=== PATIENT | female | born 1970 | race Hispanic/Latino ===

== ENCOUNTER 2018-10-28 07:28 | Day surgery (SDC) | payer BC, OTHER ==
[2018-10-28] MEDS ORDERED: Ringers Lactate 1,000 ML IV ONE ×2 (08:06→10:18)
[2018-10-28 08:09] LABS: Absolute Lymphocytes (CBC) 1.6 K/uL (0.7-4.9); Absolute Monocytes 0.2 K/uL (0.1-1.3); Absolute Neutrophil 1.8 K/uL (1.8-8.0); Basophils % 0.5 % (0-1.3); Eosinophils % 2.2 % (0-4.4); Hematocrit 35.9 % (36.0-45.0); Lymphocytes % 43.5 % (15.3-44.8); MPV 8.6 fL (7.6-11.3); Monocytes % 5.5 % (3.3-12.3); RBC Red Blood Cell Count 4.27 M/uL (3.86-4.86)
--- NOTE | 2018-10-28 08:34 | RAD REPORT ---
EXAM DESCRIPTION: RAD - Chest Pa And Lat (2 Views) - 10/28/2018 8:26 am CLINICAL HISTORY: PRE-OP Chest pain. COMPARISON: No comparisons FINDINGS: The lungs are clear. The heart is normal in size. No displaced fractures. IMPRESSION: No acute or concerning finding suspected.
[2018-10-28] MEDS ORDERED: CEFOXITIN/SWI 1gm 1 GM/10 ML SYR ONE (08:35)
[2018-10-28 08:45] LABS: Albumin 4.1 g/dL (3.4-5.0); Bilirubin Direct 0.1 mg/dL (0-0.2); Bilirubin Total 0.5 mg/dL (0.2-1.0); Protein, Total 7.9 g/dL (6.4-8.2)
[2018-10-28] MEDS ORDERED: FENTANYL CITR 100 MCG/2 ML ONE (09:34)
[2018-10-28] MEDS ORDERED: MIDAZOLAM HCL 2 MG/2 ML INJ ONE (09:34)
[2018-10-28] MEDS ORDERED: LIDOCAINE 2% MPF 5 ML VIAL ONE (09:34)
[2018-10-28] MEDS ORDERED: PROPOFOL 200 MG/20 ML VIAL IV ONE (09:34)
[2018-10-28] MEDS ORDERED: ROCURONIUM 50 MG/5 ML VIAL IV ONE (09:34)
[2018-10-28] MEDS ORDERED: SCOPOLAMINE HYDROBROMIDE PATCH TD ONE (09:40)
[2018-10-28] MEDS ORDERED: DEXAMETHASONE 4 MG/ML VIAL ONE (09:55)
[2018-10-28] MEDS ORDERED: ONDANSETRON 4 MG/2 ML VIAL ONE (09:55)
[2018-10-28] MEDS ORDERED: DIPHENHYDRAMINE 50 MG/ML VIAL ONE (09:56)
[2018-10-28] MEDS ORDERED: KETOROLAC 30 MG/ML INJ ONE (09:59)
[2018-10-28] MEDS ORDERED: GLYCOPYRROLATE 0.2 MG/ML SYR ONE (10:20)
[2018-10-28] MEDS ORDERED: NEOSTIGMINE 1 MG/ML -10 ML VIAL ONE (10:22)
--- NOTE | 2018-10-28 10:23 | P.BOP ---
Preoperative diagnosis: acute cholecystitis, symptomatic cholelithiasis, gallbladder polyps Postoperative diagnosis: same Primary procedure: Laparoscopic cholecystectomy Precision Lens Polisher: ASHLYN URRUTIA (DIRECTOR INSTRUMENTATION) Estimated blood loss: <10cc Specimen: gb Findings: as above Anesthesia: General Complications: None Transferred to: Recovery Room Condition: Good
[2018-10-28] MEDS: MEPERIDINE HCL 25 MG/0.5 ML ONE ×2 (11:02→11:07)
[2018-10-28] MEDS ORDERED: CODEINE 30MG/APAP 300MG TAB ONE (12:22)
--- NOTE | 2018-10-29 11:39 | EKG ---
Test Date: 2018-10-28 Test Time: 07:49:37 Electronics Design Engineer: SHEMAR MEASUREMENT RESULTS: Intervals: Rate: 58 [place]: 136 QRSD: 84 QT: 436 QTc: 428 [place]: P: 56 [place]: 136 QRS: 3 T: 34 INTERPRETIVE STATEMENTS: Sinus bradycardia Otherwise normal ECG No previous ECG available for comparison Electronically Signed On 10-29-18 07:39:17 CDT by Lb Jones
--- NOTE | 2018-10-29 11:41 | OP ---
Date of Procedure: 10/28/2018 Surgeon: Maurice Limon MD Lasting Machine Operator Bed: STAS Yee. Preoperative Diagnoses: Acute cholecystitis, symptomatic cholelithiasis, gallbladder polyps. Postoperative Diagnoses: Acute cholecystitis, symptomatic cholelithiasis, gallbladder polyps. Procedure: Laparoscopic cholecystectomy. Estimated Blood Loss: Less than 10 cc. Specimen: Gallbladder. Findings: The patient has gallbladder wall inflammation. Anesthesia: General plus local. Indications: This is a case of a 48-year-old patient with recurrent epigastric right upper quadrant pain radiating to the back associated with nausea and bloating. The patient was found to have a gall bladder with either polyp or stone, the radiologist is not completely sure about it. We explained to her the benefits, alternatives, and risks of surgical versus nonsurgical options, the surgical optio ns being in this case laparoscopic possible open cholecystectomy with benefits, alternatives, and ris ks including, but not limited to infection, bleeding, damage to adjacent structures, anesthesia compl ication, choledocholithiasis, bile leak, pancreatitis, [place], and even . She also understands this may not relieve any symptoms. She might need more than one surgical intervention. She wants to pro ceed with laparoscopic cholecystectomy, possible open. Consent was signed. Description Of Procedure: The patient was brought to the operating room, placed in supine position. Anesthesia was induced without complication. Abdominal area was prepped and draped in usual sterile fashion. Marcaine 0.5% was injected for local anesthetic, followed by sharp incision of the skin in the infraumbilical region. Incision was carried down to fascia, which was opened under direct visio n. Peritoneum was encountered, opened under direct vision. Vicryl #1 placed inside the fascia. Has son trocar was carefully introduced. Pneumoperitoneum was obtained. I placed 3 more trocars, 5 mm e ach one of them, in the right upper quadrant under direct visualization. The grasper placed in the f undus of the gallbladder, another grasper in the infundibulum, retracting the gallbladder in inferola teral fashion, exposing the triangle of Calot, obtaining critical view of safety. The cystic duct an d cystic artery were clearly isolated free circumferentially and a connection between those and the g allbladder was clearly identified. I proceeded to ligate those by using at least 3 clips proximal, 1 clip distal, ligation in the middle. Same was done with the cystic artery. No bile leak. No bleed ing. The gallbladder was removed from liver using Bovie cauterizer and removed from abdominal cavity using an EndoCatch through the umbilical incision. The area was inspected once again. No bile leak . No bleeding. Clips were intact. Gallbladder fossa with no bleeding. At that moment, I proceeded to remove the trocars under direct vision. Deflated the pneumoperitoneum. Closed the fascia with # 1 Vicryl, irrigated the subcutaneous tissue, closed that with chromic, and skin in a subcuticular fas hion with 3-0 chromic, and a Steri-Strip on top. Sponge count and instrument counts were correct. T he patient tolerated the procedure well. The patient was sent to Recovery in stable condition. ZAKI Voice ID: [id number] Report ID: [id number]
--- NOTE | 2018-10-29 11:44 | DS ---
Date of Discharge: 10/28/2018 Diagnoses: Acute cholecystitis, symptomatic cholelithiasis, gallbladder polyps. Procedure: Laparoscopic cholecystectomy. Disposition: Home. Activity: As tolerated. No heavy lifting. Followup: Follow up in my office in 1 week. Call for appointment [phone]. Keep area dry for 48 ho urs, then may shower. Keep Steri-Strips intact. Medications: Include Tylenol No. 3 q.4 hours for p.r.n. pain, Bactrim DS p.o. b.i.d., Zofran 4 every 6 p.r.n. nausea. FREDI/REINALDO Voice ID: [id number] Report ID: [id number]
== END 2018-10-28 13:30 | disposition home or self-care (01) ==
LOC: OR 07:28
PROVIDERS: ATTEND Surgery
PROC: 0FT44ZZ Resection of Gallbladder, Percutaneous Endoscopic Approach (ICD-10-PCS; principal; 2018-10-28 09:45)
DX: K80.12 Calculus of gallbladder with acute and chronic cholecystitis without obstruction (principal); K21.9 Gastro-esophageal reflux disease without esophagitis
CPT/HCPCS: 36415; 71046; 80048; 80076; 82150; 83690; 85025; 88304; 93005; J2175; J2250; J2405; J2704; J2710; J3010

== ENCOUNTER 2020-12-07 10:28 | Inpatient (IN) | payer BC, OTHER ==
[2020-12-07] MEDS ORDERED: METHYLPREDNISOLONE 125 MG INJ ONE (11:04)
[2020-12-07] MEDS ORDERED: ACETAMINOPHEN 500 MG TAB ONE (11:07)
[2020-12-07 11:27] LABS: Absolute Lymphocytes (CBC) 0.8 K/uL (0.7-4.9); Basophils % 0.2 % (0-1.3); Lymphocytes % 30.5 % (15.3-44.8); MPV 8.5 fL (7.6-11.3); RBC Red Blood Cell Count 4.74 M/uL (3.86-4.86)
[2020-12-07 11:29] LABS: Protime INR 1.09
--- OUTSIDE RECORDS SUMMARY | 2020-12-07 11:32 | XMS REPORT | Continuity of Care Document ---
:1970 Author Organization [facility] t Address [address] [place] [address] Care Team Providers Name Role Phone Marcial Brunson MD Primary Care Physician Amrit Smith Attending Clinician Marisol Marc Attending Clinician [address] Attending Clinician Payers Payer Name Policy Type Policy Number Effective Date Expiration Date S ource Problems Condition Condition Condition Status Onset Resolution Last Treating Co mments Source Name Details Category Date Date Treatment Clinician Date Chondromal Chondromal Disease Active 2018-06 [place] [facility] [facility] [place] of 2-13 [facility] left knee left knee 00:00: st 00 Internal Internal Disease Active 2018-06 [place] derangemen 1-15 Me thodi t of left t of left 00:00: st knee knee 00 Left knee Left knee Disease Active 2018-06 [place] [facility] pain pain 1-15 [facility] 00:00: st 00 Allergies, Adverse Reactions, Alerts This patient has no known allergies or adverse reactions. Family History Family Member Diagnosis Comments Start Date Stop Date Source Natural father Diabetes [facility] Maternal uncle Diabetes [facility] Social History Social Habit Start Date Stop Date Quantity Comments Source Tobacco use and 2019-05-14 2019-05-14 Never used [facility]ist exposure 00:00:00 00:00:00 Alcohol intake 2019-05-14 2019-05-14 Current drinker [facility] 00:00:00 00:00:00 of alcohol (finding) Sex [birth year] [facility]ist 00:00:00 00:00:00 Smoking Status Start Date Stop Date Source Never smoker [facility] Medications Ordered Filled Start Stop Current Ordering Indication Dosage Frequency Signature Comments Components Source Medication Medication Date Date Medication? Clinician (SIG) Name Name omeprazole 2018-06 Yes 20mg QD Take 20 mg [place] (PriLOSEC) 1-15 by mouth Metho di 20 MG 10:05: daily. st capsule 26 Procedures This patient has no known procedures. Plan of Care Planned Activity Planned Date Details Comments Source Future Scheduled 2020-12-31 INFLUENZA VACCINE [place] [facility] 00:00:00 [code = INFLUENZA VACCINE] Future Scheduled 2020-02-06 BREAST CANCER [facility] Test 00:00:00 SCREENING [code = BREAST CANCER SCREENING] Future Scheduled 2020-02-06 COLONOSCOPY SCREENING [place] [facility] 00:00:00 [code = COLONOSCOPY SCREENING] Future Scheduled 2020-02-06 SHINGLES VACCINES [place] [facility] 00:00:00 (#1) [code = SHINGLES VACCINES (#1)] Future Scheduled 1991 Screening for [facility] Test 00:00:00 malignant neoplasm of cervix (procedure) [code = 061484320] Future Scheduled 1988-02-06 Hepatitis C screening [place] [facility] 00:00:00 (procedure) [code = 520193119] Future Scheduled 1982 COVID-19 VACCINE (1) [facility] 00:00:00 [code = COVID-19 VACCINE (1)] Encounters Start End Encounter Admission Attending Care Care Encounter Source Date/Time Date/Time Type Type Clinicians Facility Department ID 2020-12-01 2020-12-01 Outpatient [facility] [id number] [facility] 2020-09-25 2020-09-25 [facility] [id number] 2020-09-15 2020-09-15 [facility] [id number] [facility] 2020-08-31 2020-08-31 [facility] [id number] [facility] 2020-08-17 2020-08-17 [facility] [id number] [facility] 2020-07-03 2020-07-03 [id number] 2019-08-11 2019-08-12 Emergency [facility] [id number] 20:17:25 00:30:00 Farhat Rosenbaum [id number] [place] [id number] [place] [id number] 2019-08-11 2019-08-11 Urgent [facility] [id number] 18:38:09 18:53:09 Care [facility] [id number] [facility] [id number] Specialti [id number] es 370 Ilsa 2019-01-29 2019-01-29 [facility] [id number] 17:56:36 18:56:48 Care [facility] [id number] Surgical [id number] Specialti [phone] es 370 [place] Results This patient has no known results.
--- NOTE | 2020-12-07 11:56 | RAD REPORT ---
EXAM DESCRIPTION: RAD - Chest Single View - 12/07/2020 11:46 am CLINICAL HISTORY: Cough;Dyspnea COMPARISON: Two view chest September 2018 TECHNIQUE: AP portable chest image was obtained 12/07/2020 11:46 am . FINDINGS: Lung volumes are very low accentuating heart, vasculature and lung markings. Interstitial and alveolar bibasilar opacification is suspicious for pneumonia but would need follow-up with more o ptimal inspiratory effort. Large body habitus artifact and shallow inspiration artifact can create a similar pattern. No failure or volume overload suspected. Heart and vasculature are normal. No measurable pleural effu aleah and no pneumothorax. No acute bony abnormality seen. No acute aortic findings suspected. IMPRESSION: Significantly limited portable imaging with lung volumes in bilateral lung parenchymal o pacification. Lung base findings may simply be atelectasis. Bilateral lung base pneumonia cannot be excluded.
[2020-12-07 12:09] LABS: ALT/SGPT 96 U/L (12-78); AST/SGOT 130 U/L (15-37); Albumin 3.9 g/dL (3.4-5.0); Alkaline Phosphatase 101 U/L (45-117); BUN Blood Urea Nitrogen 6 mg/dL (7-18); Bicarbonate 28 mmol/L (21-32); Bilirubin Direct 0.2 mg/dL (0-0.2); Bilirubin Total 0.6 mg/dL (0.2-1.0); Ferritin 394.2 ng/mL (8-388); Glucose Level 110 mg/dL (74-106); Potassium 3.3 mmol/L (3.5-5.1); Protein, Total 8.8 g/dL (6.4-8.2); Sodium Level 140 mmol/L (136-145); Troponin (Emerg Dept Use Only) < 0.02 ng/mL (0.0-0.045)
--- NOTE | 2020-12-07 12:25 | ER ---
Nurse's Notes [facility] Name: Madina Danielle Age: 50 yrs Sex: Female : 1970 Arrival Date: 12/07/2020 Time: 10:31 Bed 18 Private MD: Diagnosis: Pneumonia due to SARS-associated coronavirus;Sepsis, unspecified organism;Hypoxemia Presentation: 12/07 10:38 Chief complaint: Patient states: spouse tested COVID+ 11/29/20. c/o cough, fatigue, back sv pain, mid chest pain, n/v/, SOB and fever Tmax 104 since 11/30/20. Coronavirus screen: Client denies travel out of the [place] in the last 14 days. Client presents with at least one sign or symptom that may indicate coronavirus-19. Standard/surgical mask placed on the client. Provider contacted for isolation considerations. Ebola Screen: No symptoms or risks identified at this time. Initial Sepsis Screen: Does the patient meet any 2 criteria? RR > 20 per min. Temp <36.0*C (96.8*F)) or > 38.3*C (100.9*F). HR > 90 bpm. Yes Does the patient have a suspected source of infection? Yes: Other: COVID. Risk Assessment: Do you want to hurt yourself or someone else? Patient reports no desire to harm self or others. Onset of symptoms was November 30, 2020. 10:38 Method Of Arrival: Ambulatory sv 10:38 Acuity: STEPHANIE 2 sv Triage Assessment: 10:42 General: Appears in no apparent distress. uncomfortable, Behavior is cooperative. Pain: sv Complains of pain in back and chest Pain currently is 6 out of 10 on a pain scale. Neuro: Level of Consciousness is awake, alert, obeys commands, Oriented to person, place, time, situation, Gait is steady. Respiratory: Respiratory effort is even, Respiratory pattern is symmetrical, tachypnea. Historical: - Allergies: 10:42 No Known Allergies; sv - PMHx: 10:42 None; sv - PSHx: 10:42 Cholecystectomy; Hysterectomy; sv - Immunization history:: Client reports receiving the 1st dose of the Covid vaccine, November 29, 2020. - Social history:: Smoking status: Patient denies any tobacco usage or history of. - Family history:: not pertinent. - Hospitalizations: : No recent hospitalization is reported. Screenin:40 Abuse screen: Denies threats or abuse. Nutritional screening: No deficits noted. jd3 Tuberculosis screening: No symptoms or risk factors identified. Fall Risk Ambulatory Aid- None/Bed Rest/Nurse Assist (0 pts). Gait- Normal/Bed Rest/Wheelchair (0 pts) Mental Status- Oriented to own ability (0 pts). Total Lopez Fall Scale indicates No Risk (0-24 pts). Assessment: 10:38 General: Appears in no apparent distress. uncomfortable, Behavior is calm, cooperative, jd3 appropriate for age. Pain: Complains of pain in back and chest Quality of pain is described as aching, pressure. Neuro: Level of Consciousness is awake, alert, obeys commands, Oriented to person, place, time, situation. Cardiovascular: Capillary refill < 3 seconds Patient's skin is warm and dry. Rhythm is sinus tachycardia. Respiratory: Reports shortness of breath at rest cough that is non-productive, dry, persistent Airway is patent Respiratory effort is even, labored, Respiratory pattern is symmetrical, tachypnea Breath sounds are diminished bilaterally. GI: No signs and/or symptoms were reported involving the gastrointestinal system. : No signs and/or symptoms were reported regarding the genitourinary system. EENT: No signs and/or symptoms were reported regarding the EENT system. Derm: Skin is intact, Skin is dry, Skin is normal, Skin temperature is warm. Musculoskeletal: Circulation, motion, and sensation intact. Range of motion: intact in all extremities. 10:41 Reassessment: Code Sepsis called. sv 11:45 Reassessment: Patient appears in no apparent distress at this time. No changes from jd3 previously documented assessment. Patient and/or family updated on plan of care and expected duration. Pain level reassessed. Patient is alert, oriented x 3, equal unlabored respirations, skin warm/dry/pink. 12:31 Reassessment: Patient appears in no apparent distress at this time. Patient and/or jd3 family updated on plan of care and expected duration. Pain level reassessed. Patient is alert, oriented x 3, equal unlabored respirations, skin warm/dry/pink. Patient states feeling better. 13:26 Reassessment: Patient appears in no apparent distress at this time. No changes from jd3 previously documented assessment. Patient and/or family updated on plan of care and expected duration. Pain level reassessed. Patient is alert, oriented x 3, equal unlabored respirations, skin warm/dry/pink. 14:32 Reassessment: Patient appears in no apparent distress at this time. No changes from jd3 previously documented assessment. Patient and/or family updated on plan of care and expected duration. Pain level reassessed. Patient is alert, oriented x 3, equal unlabored respirations, skin warm/dry/pink. 15:45 Reassessment: Patient appears in no apparent distress at this time. Patient and/or jd3 family updated on plan of care and expected duration. Pain level reassessed. Patient is alert, oriented x 3, equal unlabored respirations, skin warm/dry/pink. Patient states feeling better. Vital Signs: 10:38 Pulse 114; Resp 36; Temp 102.1(O); Pulse Ox 92% on R/A; Weight 83.91 kg; Height 5 ft. 2 sv in. (157.48 cm); Pain 6/10; 11:57 Pulse 105; Resp 27 S; Pulse Ox 94% on R/A; jd3 12:30 Pulse 100; Resp 24 S; Temp 101.8(O); Pulse Ox 94% on R/A; jd3 13:26 Pulse 97; Resp 25 S; Pulse Ox 94% on R/A; jd3 14:32 Pulse 104; Resp 26 S; Pulse Ox 95% on R/A; jd3 16:35 BP 111 / 62; Pulse 96; Resp 24 S; Temp 97.9(TE); Pulse Ox 94% on R/A; jd3 10:38 Body Mass Index 33.84 (83.91 kg, 157.48 cm) sv ED Course: 10:31 Patient arrived in ED. wm 10:33 [place], LUCY is Primary Nurse. jd3 10:37 Frandy Jasso MD is Attending Physician. rn 10:39 Patient has correct armband on for positive identification. Bed in low position. Call jd3 light in reach. Side rails up X 1. secured entrance monitor on. Pulse ox on. NIBP on. 10:41 Triage completed. sv 11:11 Arm band placed on. jd3 11:15 Inserted saline lock: 20 gauge in left antecubital area, using aseptic technique. Blood jd3 collected. 11:46 CXR XRAY In Process Unspecified. EDMS 12:23 Miguel Jacobo DO is Hospitalizing Provider. rn 16:36 No provider procedures requiring assistance completed. Patient admitted, IV remains in jd3 place. Administered Medications: 10:50 Drug: Tylenol 1000 mg Route: PO; jd3 11:30 Drug: SOLU-Medrol (methylPrednisoLONE) 125 mg Route: IVP; Site: right antecubital; jd3 Outcome: 12:24 Decision to Hospitalize by Provider. rn 17:55 Patient left the ED. jd3 Signatures: Dispatcher [employer] EDMS Clari Sandoval RN RN sv Nieto, Roman, MD MD rn Davies, Jonathon, RN RN jd3 Marsh, Wendy wm Corrections: (The following items were deleted from the chart) 10:42 10:42 PMHx: None; sv sv 10:42 10:42 PMHx: hysterectomy; sv sv 10:42 10:42 PSHx: hystectomy; sv sv 16:36 15:00 Inserted saline lock: 20 gauge in left antecubital area, using aseptic technique. jd3 Blood collected. jd3 16:37 16:35 BP 111 / 62; Pulse 96bpm; Resp 24bpm; Spontaneous; Pulse Ox 94% RA; jd3 jd3
--- NOTE | 2020-12-07 12:25 | EDPHYS ---
Physician Documentation [facility] Name: Madina Danielle Age: 50 yrs Sex: Female : 1970 Arrival Date: 12/07/2020 Time: 10:31 Bed 18 Private MD: ED Physician Frandy Jasso HPI: 12/07 12:02 This 50 yrs old Female presents to ER via Ambulatory with complaints of rn Congestion. 12:02 The patient has shortness of breath at rest, with light activity. Onset: The rn symptoms/episode began/occurred 6 day(s) ago. Duration: The symptoms are continuous. The patient's shortness of breath is aggravated by exertion, light activity, supine position, talking, walking, is alleviated by nothing. Associated signs and symptoms: Pertinent positives: non-productive cough, fever, Pertinent negatives: hemoptysis, loss of consciousness. Severity of symptoms: At their worst the symptoms were moderate in the emergency department the symptoms are unchanged. The patient has not experienced similar symptoms in the past. The patient has been recently seen by a physician:. Reports COVID +, she has not been tested, + sob that worsens with exertion, no chronic medical problems. . Historical: - Allergies: 10:42 No Known Allergies; sv - PMHx: 10:42 None; sv - PSHx: 10:42 Cholecystectomy; Hysterectomy; sv - Immunization history:: Client reports receiving the 1st dose of the Covid vaccine, November 29, 2020. - Social history:: Smoking status: Patient denies any tobacco usage or history of. - Family history:: not pertinent. - Hospitalizations: : No recent hospitalization is reported. 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 12:02 All other systems are negative. rn Exam: 11:17 ECG was reviewed by the Attending Physician. rn 12:02 Constitutional: This is a well developed, well nourished patient who is awake, alert, rn + moderate tachypnea Head/Face: Normocephalic, atraumatic. Eyes: Periorbital areas with no swelling, redness, or edema. ENT: no stridor Cardiovascular: Tachycardic, regular. No pulse deficits. Respiratory: + moderate tachypnea, no retractions, diminished bilateral bases Abdomen/GI: soft, non-tender Skin: Warm, dry MS/ Extremity: Pulses equal, no cyanosis. Neuro: Awake and alert, GCS 15 Vital Signs: 10:38 Pulse 114; Resp 36; Temp 102.1(O); Pulse Ox 92% on R/A; Weight 83.91 kg; Height 5 ft. 2 sv in. (157.48 cm); Pain 6/10; 11:57 Pulse 105; Resp 27 S; Pulse Ox 94% on R/A; jd3 12:30 Pulse 100; Resp 24 S; Temp 101.8(O); Pulse Ox 94% on R/A; jd3 13:26 Pulse 97; Resp 25 S; Pulse Ox 94% on R/A; jd3 14:32 Pulse 104; Resp 26 S; Pulse Ox 95% on R/A; jd3 16:35 BP 111 / 62; Pulse 96; Resp 24 S; Temp 97.9(TE); Pulse Ox 94% on R/A; jd3 10:38 Body Mass Index 33.84 (83.91 kg, 157.48 cm) sv MDM: 10:37 Patient medically screened. rn 12:22 Differential diagnosis: Bronchitis Myocardial Infarction pneumonia, Pneumothorax rn pulmonary edema, Pulmonary Embolism Sepsis. Data reviewed: vital signs, nurses notes, lab test result(s), EKG, radiologic studies, plain films, and as a result, I will admit patient. Counseling: I had a detailed discussion with the patient and/or guardian regarding: the historical points, exam findings, and any diagnostic results supporting the discharge/admit diagnosis, lab results, radiology results, the need for further work-up and treatment in the hospital. Response to treatment: the patient's symptoms have mildly improved after treatment, and as a result, I will admit patient. Admission orders: after a detailed discussion of the patient's condition and case, the admit orders are written by me. ED course: Pt with COVID pneumonia, early sepsis without septic shock, admitted to Dr. Jacobo. . 12/07 10:40 Order name: BMP; Complete Time: 12: rn 12/07 10:40 Order name: Blood Culture Adult (2) rn 12/07 10:40 Order name: C-Reactive Protein; Complete Time: 12: rn 12/07 10:40 Order name: CBC with Diff; Complete Time: :58 rn 12/07 10:40 Order name: D-Dimer; Complete Time: :58 rn 12/07 10:40 Order name: Ferritin; Complete Time: 12: rn 12/07 10:40 Order name: Flu; Complete Time: 12:25 rn 12/07 10:40 Order name: LFT's; Complete Time: 12: rn 12/07 10:40 Order name: Lactate; Complete Time: :58 rn 12/07 10:40 Order name: PT-INR; Complete Time: :12/07 10:40 Order name: Procalcitonin rn 12/07 10:40 Order name: Ptt, Activated; Complete Time: :58 12/07 10:40 Order name: Troponin (emerg Dept Use Only); Complete Time: 12:12/07 10:40 Order name: CXR XRAY; Complete Time: :58 12/07 10:40 Order name: EKG; Complete Time: 10:41 12/07 10:40 Order name: Cardiac monitoring; Complete Time: 10:50 12/07 10:40 Order name: Droplet/Contact Precautions; Complete Time: :12/07 10:40 Order name: EKG - Nurse/Tech; Complete Time: 10:50 12/07 10:40 Order name: IV Start; Complete Time: 11:24 12/07 10:40 Order name: Labs collected and sent; Complete Time: 11:12/07 10:40 Order name: O2 Per Protocol; Complete Time: 10:50 12/07 10:40 Order name: O2 Sat Monitoring; Complete Time: 10:12/07 13:10 Order name: SARS-COV-2 RT PCR EDMS EC:17 Rate is 112 beats/min. Rhythm is regular. Left axis deviation noted. QRS is positive in rn lead I and negative in lead aVF. GA interval is normal. QRS interval is normal. QT interval is normal. No Q waves. T waves are Normal. No ST changes noted. Clinical impression: Sinus tachycardia. Interpreted by me. Reviewed by me. Administered Medications: 10:50 Drug: Tylenol 1000 mg Route: PO; jd3 11:30 Drug: SOLU-Medrol (methylPrednisoLONE) 125 mg Route: IVP; Site: right antecubital; jd3 Disposition Summary: 12/07/20 12:24 Hospitalization Ordered Hospitalization Status: Inpatient Admission rn Provider: Miguel Jacobo rn Condition: Stable rn Problem: new rn Symptoms: have improved rn Bed/Room Type: Standard rn Location: Telemetry/MedSurg (Inpatient)(12/07/20 16:31) ss Room Assignment: [facility](12/07/20 16:31) Diagnosis - Pneumonia due to SARS-associated coronavirus rn - Sepsis, unspecified organism rn - Hypoxemia rn Forms: - Medication Reconciliation Form rn - SBAR form rn Signatures: Dispatcher [employer] EDMS Clari Sandoval RN RN Frandy Goff MD MD rn Smirch, Shelby, RN RN ss Davies, Jonathon, RN RN jd3 Corrections: (The following items were deleted from the chart) 10:42 10:42 PMHx: None; sv sv 10:42 10:42 PMHx: hysterectomy; sv sv 10:42 10:42 PSHx: hystectomy; sv sv 12:02 10:41 CORONAVIRUS+MR.LAB.BRZ ordered. EDLA EDMS 15:37 12:24 Telemetry/MedSurg (Inpatient) rn ss 15:37 12:24 rn ss 16:31 15:37 BR ER HOLD ss ss 16:31 15:37 ERHOLD- ss ss
--- NOTE | 2020-12-07 13:14 | P.HP ---
Certification for Inpatient Patient admitted to: Inpatient With expected LOS: >2 Midnights Patient will require the following post-hospital care: Other (Home oxygen at discharge) Practitioner: I am a practitioner with admitting privileges, knowledge of patient current condition, hospital course, and medical plan of care. Services: Services provided to patient in accordance with Admission requirements found in Title 42 Section 412.3 of the Code of Federal Regulations Patient History Date of Service: 12/07/20 Primary Care Provider: Dr. Juares Reason for admission: Shortness of breath History of Present Illness: 50-year-old female with history of fatty liver. Patient presented with increasing shortness of breath over the past week. Symptoms have been worsening. She also reports some fever, chills, cough and arthralgias. Some fatigue noted. with similar complaints and tested positive. Patient is partially vaccinated. She received her first dose of Pfizer several weeks ago. She came to the ER for further evaluation. In the ER patient was evaluated. Patient was febrile and tachypneic. Room air saturations around 92%. On labs white count 2.7, hemoglobin 13.7. Sodium 140, potassium three-point.. BUN of 6, creatinine 0.8. GFR 75. Glucose 110. CRP 87, ferritin 394. AST 130, ALT 96. D-dimer negative. Lactic acid negative. Troponin negative. Chest x-ray shows Covid pattern. Patient admitted for treatment. Patient given IV Solu-Medrol in the emergency room. Allergies No Known Allergies Allergy (Verified 10/28/18 08:25) Home medications list reviewed: Yes Home Medications: Codeine/APAP [Tylenol W/Codeine #3 tab] 1 tab PO Q4HP PRN #30 tab 10/28/18 Omeprazole [Prilosec] 40 mg PO DAILY 10/28/18 Sulfamethoxazole/Trimethoprim [Bactrim Ds Tablet] 1 each PO BID #10 tablet 10/28/18 - Past Medical/Surgical History Diabetic: No -: Fatty liver -: Cholecystectomy -: Hysterectomy Psychosocial/ Personal History: Patient is - Family History Family History: Reviewed- Non-Contributory - Social History Smoking Status: Never smoker Alcohol use: No CD- Drugs: No Caffeine use: No Place of Residence: Home Review of Systems General: Fever, Chills, Weakness, Malaise, As per HPI Eyes: Unremarkable ENT: Nose Congestion, As per HPI Respiratory: Cough, Shortness of Breath, SOB with Excertion, As per HPI Cardiovascular: Unremarkable Gastrointestinal: Unremarkable Genitourinary: Unremarkable Musculoskeletal: Unremarkable Integumentary: Unremarkable Neurological: Unremarkable Lymphatics: Unremarkable Physical Examination - Studies Laboratory Data (last 24 hrs) 12/07/20 10:57: PT 12.5, INR 1.09, APTT 31.5 12/07/20 10:57: WBC 2.70 L, Hgb 13.7, Hct 41.0, Plt Count 145 L 12/07/20 10:57: Sodium 140, Potassium 3.3 L, BUN 6 L, Creatinine 0.81, Glucose 110 H, Total Bilirubin 0.6, AST 130 H, ALT 96 H, Alkaline Phosphatase 101 Microbiology Data (last 24 hrs): 12/07/20 11:08 Nasopharnyx Influenza Type A Antigen Screen - Final 12/07/20 11:08 Nasopharnyx Influenza Type B Antigen Screen - Final Assessment and Plan - Plan Chest x-ray: FINDINGS: Lung volumes are very low accentuating heart, vasculature and lung markings. Interstitial and alveolar bibasilar opacification is suspicious for pneumonia but would need follow-up with more optimal inspiratory effort. Large body habitus artifact and shallow inspiration artifact can create a similar pattern. No failure or volume overload suspected. Heart and vasculature are normal. No measurable pleural effusion and no pneumothorax. No acute bony abnormality seen. No acute aortic findings suspected. IMPRESSION: Significantly limited portable imaging with lung volumes in bilateral lung parenchymal opacification. Lung base findings may simply be atelectasis. Bilateral lung base pneumonia cannot be excluded. Physical Exam: GENERAL: Patient with cough, congestion. VITAL SIGNS: Reviewed HEENT: Extraocular movements intact. Dry mucous membranes. NECK: Supple. No carotid bruits. No lymphadenopathy or thyromegaly. LUNGS: Congestion bilateral HEART: Regular rate and rhythm, no appreciable gallops, rubs, murmurs or extra heart sounds ABDOMEN: Soft, nontender, and nondistended. Positive bowel sounds. No hepatosplenomegaly was noted. EXTREMITIES: Without any cyanosis, clubbing, rash, lesions or peripheral edema. NEUROLOGIC: The patient is oriented to person, place and time. Strength and sensation are grossly intact. Face is symmetric. SKIN: Normal color, turgor and temperature. No ulcerations or rashes noted. Impression: Dyspnea secondary to bilateral Covid pneumonia with hypoxia, partially vaccinated Fatty liver with noted elevated liver function Plan: Dyspnea secondary to bilateral Covid pneumonia with hypoxia, partially vaccinated: Patient admitted for further evaluation and treatment. We will continue on oxygen to maintain sats above 90%. Will continue with IV Solu- Medrol and vitamin supplementation. Patient not a candidate for remdesivir, Actemra, or baricitinib due to elevated liver function. Will continue to monitor and trend CRP and ferritin. DVT prophylaxisLovenox in place. Will provide medication for cough, congestion, fever, or pain. Will provide supplementation if required. We will continue to monitor closely. Anticipate home oxygen at discharge. Anticipate improvement over the next 72 hours. Fatty liver with noted elevated liver function: Patient with history of fatty liver. Will monitor and trend liver function test. Patient was to have outpatient liver ultrasound recently. Code Status: Full Code DVT prophylaxis: Lovenox Advanced Care Planning-30 minutes: Home at discharge. Anticipate likely oxygen at discharge. Discharge Plan: Home Plan to discharge in: 72 Hours - Advance Directives Does patient have a Living Will: No Does patient have a Durable POA for Healthcare: No - Code Status/Comfort Care Code Status Assessed: Yes (Full code) Time Spent Managing Pts Care (In Minutes): 55
[2020-12-07] MEDS ORDERED: ONDANSETRON 4 MG/2 ML VIAL IV PRN (16:40)
[2020-12-07] MEDS: ENSURE HIGH PROTEIN 237 ML CAN PO SCH ×2 (16:40→21:00)
[2020-12-07] MEDS ORDERED: IPRATROPIUM BROM 0.5MG/2.5ML NEB PRN (16:40)
[2020-12-07] MEDS ORDERED: ALBUTEROL 2.5 MG/3 ML NEB SOL NEB PRN (16:40)
[2020-12-07] MEDS ORDERED: ACETAMINOPHEN 500 MG TAB PO PRN (16:40)
[2020-12-07] MEDS ORDERED: ASCORBIC ACID 500 MG TABLET ONE (17:20)
[2020-12-07] MEDS ORDERED: ENOXAPARIN 40 MG/0.4 ML SQ ONE (17:20)
[2020-12-07] MEDS ORDERED: METHYLPREDNISOLONE 40 MG INJ ONE (17:21)
[2020-12-07] MEDS ORDERED: FAMOTIDINE 20 MG TAB ONE (17:21)
[2020-12-07] MEDS ORDERED: BENZONATATE 100 MG CAP PO ONE (17:22)
[2020-12-07] MEDS: FAMOTIDINE 20 MG TAB PO SCH (17:40)
[2020-12-07] MEDS: ASCORBIC ACID 500 MG TABLET PO SCH ×2 (17:40→21:27)
[2020-12-07] MEDS: ENOXAPARIN 40 MG/0.4 ML SQ SCH (17:40)
[2020-12-07] MEDS: METHYLPREDNISOLONE 40 MG INJ IV SCH (17:40)
[2020-12-07] MEDS: BENZONATATE 100 MG CAP PO PRN (17:40)
[2020-12-07 18:30] VITALS: BMI 33.8
[2020-12-07] MEDS ORDERED: POTASSIUM CL SA 10 MEQ TAB PO ONE (21:00)
[2020-12-07] MEDS: THIAMINE HCL 100 MG TABLET PO SCH (21:28)
[2020-12-07] MEDS: MELATONIN 5 MG TABLET PO PRN (21:34)
[2020-12-07] MEDS ORDERED: MELATONIN 5 MG TABLET PO ONE (21:53)
[2020-12-08] MEDS: METHYLPREDNISOLONE 40 MG INJ IV SCH ×2 (00:25→07:48)
[2020-12-08] MEDS: BENZONATATE 100 MG CAP PO PRN ×3 (01:42→17:25)
[2020-12-08 03:40] LABS: Absolute Lymphocytes (CBC) 0.5 K/uL (0.7-4.9); Basophils % 0.6 % (0-1.3); Hematocrit 37.6 % (36.0-45.0); Lymphocytes % 20.6 % (15.3-44.8); MPV 8.3 fL (7.6-11.3); RBC Red Blood Cell Count 4.39 M/uL (3.86-4.86)
[2020-12-08 04:01] LABS: ALT/SGPT 81 U/L (12-78); AST/SGOT 96 U/L (15-37); Albumin 3.5 g/dL (3.4-5.0); Alkaline Phosphatase 89 U/L (45-117); BUN Blood Urea Nitrogen 10 mg/dL (7-18); Bicarbonate 26 mmol/L (21-32); Bilirubin Total 0.4 mg/dL (0.2-1.0); Glucose Level 148 mg/dL (74-106); Magnesium 2.4 mg/dL (1.8-2.4); Potassium 4.1 mmol/L (3.5-5.1); Protein, Total 8.5 g/dL (6.4-8.2); Sodium Level 142 mmol/L (136-145)
--- NOTE | 2020-12-08 06:10 | P.PN ---
Subjective Date of Service: 12/08/20 Primary Care Provider: Dr. Juares Chief Complaint: Shortness of breath Subjective: Improving (Currently on 3 L/m. Still with increased cough. Some fatigue. Better since yesterday) Physical Examination - Vital Signs Temperature: 97.8 F Blood Pressure: 104/72 Pulse: 97 Respirations: 20 Pulse Ox (%): 91 - Studies Laboratory Data (last 24 hrs) 12/07/20 10:57: PT 12.5, INR 1.09, APTT 31.5 12/07/20 10:57: WBC 2.70 L, Hgb 13.7, Hct 41.0, Plt Count 145 L 12/07/20 10:57: Sodium 140, Potassium 3.3 L, BUN 6 L, Creatinine 0.81, Glucose 110 H, Total Bilirubin 0.6, AST 130 H, ALT 96 H, Alkaline Phosphatase 101 Microbiology Data (last 24 hrs): 12/07/20 11:08 Nasopharnyx Influenza Type A Antigen Screen - Final 12/07/20 11:08 Nasopharnyx Influenza Type B Antigen Screen - Final Assessment & Plan Discharge Plan: Home Plan to discharge in: 24 Hours Physician Review Additional Text: Chest x-ray: FINDINGS: Lung volumes are very low accentuating heart, vasculature and lung markings. Interstitial and alveolar bibasilar opacification is suspicious for pneumonia but would need follow-up with more optimal inspiratory effort. Large body habitus artifact and shallow inspiration artifact can create a similar pattern. No failure or volume overload suspected. Heart and vasculature are normal. No measurable pleural effusion and no pneumothorax. No acute bony abnormality seen. No acute aortic findings suspected. IMPRESSION: Significantly limited portable imaging with lung volumes in bilateral lung parenchymal opacification. Lung base findings may simply be atelectasis. Bilateral lung base pneumonia cannot be excluded. Physical Exam: GENERAL: Patient with cough, congestion. VITAL SIGNS: Reviewed HEENT: Extraocular movements intact. Dry mucous membranes. NECK: Supple. No carotid bruits. No lymphadenopathy or thyromegaly. LUNGS: Congestion bilateral but air movement improved. On 3 l/m. HEART: Regular rate and rhythm, no appreciable gallops, rubs, murmurs or extra heart sounds ABDOMEN: Soft, nontender, and nondistended. Positive bowel sounds. No hepatosplenomegaly was noted. EXTREMITIES: Without any cyanosis, clubbing, rash, lesions or peripheral edema. NEUROLOGIC: The patient is oriented to person, place and time. Strength and sensation are grossly intact. Face is symmetric. SKIN: Normal color, turgor and temperature. No ulcerations or rashes noted. Impression: Dyspnea secondary to bilateral Covid pneumonia with hypoxia, partially vaccinated Fatty liver with noted elevated liver function Plan: Dyspnea secondary to bilateral Covid pneumonia with hypoxia, partially vaccinated: Slight improvement. Still with cough. Currently on 3 l/m on NC. Continue on oxygen to maintain sats above 90%. Will continue with IV Solu- Medrol and vitamin supplementation. Patient not a candidate for remdesivir, Actemra, or baricitinib due to elevated liver function and fatty liver. Slight improvement on CRP/Ferritin. Will continue to monitor and trend CRP and ferritin. DVT prophylaxisLovenox in place. Will provide medication for cough, congestion, fever, or pain. Will provide supplementation if required. We will continue to monitor closely. Anticipate home oxygen at discharge. Anticipate improvement over the next 24-48 hours. Fatty liver with noted elevated liver function: Patient with history of fatty liver. Will monitor and trend liver function test. Patient was to have outpatient liver ultrasound recently. LFT improved. Code Status: Full Code DVT prophylaxis: Lovenox Advanced Care Planning-30 minutes: Home at discharge. Anticipate likely oxygen at discharge. Time Spent Managing Pts Care (In Minutes): 55
[2020-12-08 06:39] LABS: Ferritin 370.4 ng/mL (8-388)
--- NOTE | 2020-12-08 07:46 | EKG ---
Test Date: 2020-12-07 Test Time: 10:59:00 Trust Administrator: KRISH MEASUREMENT RESULTS: Intervals: Rate: 112 MI: 122 QRSD: 80 QT: 344 QTc: 469 [place]: P: 52 MI: 122 QRS: -36 T: 64 INTERPRETIVE STATEMENTS: Sinus tachycardia Left axis deviation Abnormal ECG Compared to ECG 10/28/2018 07:49:37 Left-axis deviation now present Sinus bradycardia no longer present Electronically Signed On 12-08-20 07:42:53 CDT by Ascencion Foy
[2020-12-08] MEDS: ENOXAPARIN 40 MG/0.4 ML SQ SCH (07:47)
[2020-12-08] MEDS: ENSURE HIGH PROTEIN 237 ML CAN PO SCH ×3 (07:47→20:29)
[2020-12-08] MEDS: VITAMIN D 1000 UNIT TAB PO SCH (07:47)
[2020-12-08] MEDS: FAMOTIDINE 20 MG TAB PO SCH ×2 (07:48→20:29)
[2020-12-08] MEDS: ASCORBIC ACID 500 MG TABLET PO SCH ×3 (07:48→20:29)
[2020-12-08] MEDS: ZINC SULFATE 220 MG CAP PO SCH (07:48)
[2020-12-08] MEDS: THIAMINE HCL 100 MG TABLET PO SCH ×2 (07:49→20:29)
[2020-12-08] MEDS: METHYLPREDNISOLONE 125 MG INJ IV SCH ×2 (09:00→17:25)
[2020-12-08] MEDS: MELATONIN 5 MG TABLET PO PRN (21:46)
[2020-12-09] MEDS: METHYLPREDNISOLONE 125 MG INJ IV SCH ×3 (00:09→16:03)
[2020-12-09] MEDS: BENZONATATE 100 MG CAP PO PRN ×3 (00:09→16:04)
[2020-12-09 04:25] LABS: Absolute Lymphocytes (CBC) 0.7 K/uL (0.7-4.9); Basophils % 0.2 % (0-1.3); Hematocrit 38.5 % (36.0-45.0); Lymphocytes % 11.8 % (15.3-44.8); MPV 8.2 fL (7.6-11.3); RBC Red Blood Cell Count 4.43 M/uL (3.86-4.86)
[2020-12-09 05:01] LABS: ALT/SGPT 69 U/L (12-78); AST/SGOT 73 U/L (15-37); Albumin 3.5 g/dL (3.4-5.0); Alkaline Phosphatase 77 U/L (45-117); BUN Blood Urea Nitrogen 16 mg/dL (7-18); Bicarbonate 28 mmol/L (21-32); Bilirubin Total 0.3 mg/dL (0.2-1.0); Glucose Level 146 mg/dL (74-106); Magnesium 2.5 mg/dL (1.8-2.4); Potassium 4.2 mmol/L (3.5-5.1); Protein, Total 8.3 g/dL (6.4-8.2); Sodium Level 144 mmol/L (136-145)
[2020-12-09 05:15] LABS: Ferritin 330.6 ng/mL (8-388)
--- NOTE | 2020-12-09 06:06 | P.DS ---
Admission Date: 12/07/20 Discharge Date: 12/09/20 Primary Care Provider: Dr. Juares Disposition: ROUTINE DISCHARGE Discharge Condition: GOOD Reason for Admission: Shortness of breath Consultations: none Procedures: Chest x-ray: FINDINGS: Lung volumes are very low accentuating heart, vasculature and lung markings. Interstitial and alveolar bibasilar opacification is suspicious for pneumonia but would need follow-up with more optimal inspiratory effort. Large body habitus artifact and shallow inspiration artifact can create a similar pattern. No failure or volume overload suspected. Heart and vasculature are normal. No measurable pleural effusion and no pneumothorax. No acute bony abnormality seen. No acute aortic findings suspected. IMPRESSION: Significantly limited portable imaging with lung volumes in bilateral lung parenchymal opacification. Lung base findings may simply be atelectasis. Bilateral lung base pneumonia cannot be excluded. Medical problem list: Dyspnea secondary to bilateral Covid pneumonia with hypoxia, partially vaccinated Fatty liver with noted elevated liver function Brief History of Present Illness: 50-year-old female with history of fatty liver. Patient presented with increasing shortness of breath over the past week. Sym ptoms have been worsening. She also reports some fever, chills, cough and arthralgias. Some fatigue noted. with similar complaints and tested positive. Patient is partially vaccinated. She received her first dose of Pfizer several weeks ago. She came to the ER for further evaluation. In the ER patient was evaluated. Patient was febrile and tachypneic. Room air saturations around 92%. On labs white count 2.7, hemoglobin 13.7. Sodium 140, potassium three-point.. BUN of 6, creatinine 0.8. GFR 75. Glucose 110. CRP 87, ferritin 394. AST 130, ALT 96. D-dimer negative. Lactic acid negative. Troponin negative. Chest x-ray shows Covid pattern. Patient admitted for treatment. Patient given IV Solu-Medrol in the emergency room. Hospital Course: Plan: Dyspnea secondary to bilateral Covid pneumonia with hypoxia, partially vaccinated: Slight improvement. Still with cough. Currently on 3 l/m on NC. Continue on oxygen to maintain sats above 90%. Will continue with IV Solu- Medrol and vitamin supplementation. Patient not a candidate for remdesivir, Actemra, or baricitinib due to elevated liver function and fatty liver. Slight improvement on CRP/Ferritin. Will continue to monitor and trend CRP and ferritin. DVT prophylaxisLovenox in place. Will provide medication for cough, congestion, fever, or pain. Will provide supplementation if required. We will continue to monitor closely. Anticipate home oxygen at discharge. Anticipate improvement over the next 24-48 hours. Fatty liver with noted elevated liver function: Patient with history of fatty liver. Will monitor and trend liver function test. Patient was to have outpatient liver ultrasound recently. LFT improved. Code Status: Full Code DVT prophylaxis: Lovenox Advanced Care Planning-30 minutes: Home at discharge. Anticipate likely oxygen at discharge. Time Spent Managing Pts Care (In Minutes): 55 Vital Signs/Physical Exam: Temp Pulse Resp BP Pulse Ox 96.9 F 94 H 18 104/65 93 12/09/20 04:00 12/09/20 04:00 12/09/20 04:00 12/09/20 04:00 12/09/20 04:00 Laboratory Data at Discharge: WBC 6.20 K/uL (4.3-10.9) D 12/09/20 04:03 Hgb 12.9 g/dL (12.0-15.0) 12/09/20 04:03 Hct 38.5 % (36.0-45.0) 12/09/20 04:03 Plt Count 217 K/uL (152-406) D 12/09/20 04:03 PT 12.5 SECONDS (9.5-12.5) 12/07/20 10:57 INR 1.09 12/07/20 10:57 APTT 31.5 SECONDS (24.3-36.9) 12/07/20 10:57 Sodium 144 mmol/L (136-145) 12/09/20 04:03 Potassium 4.2 mmol/L (3.5-5.1) 12/09/20 04:03 BUN 16 mg/dL (7-18) 12/09/20 04:03 Creatinine 0.62 mg/dL (0.55-1.3) 12/09/20 04:03 Glucose 146 mg/dL (74-106) H 12/09/20 04:03 Magnesium 2.5 mg/dL (1.8-2.4) H 12/09/20 04:03 Total Bilirubin 0.3 mg/dL (0.2-1.0) 12/09/20 04:03 AST 73 U/L (15-37) H 12/09/20 04:03 ALT 69 U/L (12-78) 12/09/20 04:03 Alkaline Phosphatase 77 U/L (45-117) 12/09/20 04:03 Home Medications: Omeprazole [Prilosec] 40 mg PO DAILY 10/28/18 Cholecalciferol (Vitamin D3) [Vitamin D 5,000 IU Cap*] 5,000 iu PO DAILY 12/07/20 Followup: NONE,NONE [Primary Care Provider] -
--- NOTE | 2020-12-09 06:47 | P.PN ---
Subjective Date of Service: 12/09/20 Primary Care Provider: Dr. Juares Chief Complaint: Shortness of breath Subjective: Improving, Other (but still with cough. On 4 L/min) Physical Examination - Vital Signs Temperature: 96.9 F Blood Pressure: 104/65 Pulse: 94 Respirations: 18 Pulse Ox (%): 93 Assessment & Plan Discharge Plan: Home Plan to discharge in: 24 Hours Physician Review Additional Text: Chest x-ray: FINDINGS: Lung volumes are very low accentuating heart, vasculature and lung markings. Interstitial and alveolar bibasilar opacification is suspicious for pneumonia but would need follow-up with more optimal inspiratory effort. Large body habitus artifact and shallow inspiration artifact can create a similar pattern. No failure or volume overload suspected. Heart and vasculature are normal. No measurable pleural effusion and no pneumothorax. No acute bony abnormality seen. No acute aortic findings suspected. IMPRESSION: Significantly limited portable imaging with lung volumes in bilateral lung parenchymal opacification. Lung base findings may simply be atelectasis. Bilateral lung base pneumonia cannot be excluded. Follow up CXR: FINDINGS: Lung volumes are low. Patchy bilateral airspace opacities are present in each lung base. Pattern is not substantially different from comparison. Heart and vasculature are normal. No measurable pleural effusion and no pneumothorax. No acute bony abnormality seen. No acute aortic findings suspected. IMPRESSION: Bilateral airspace opacification in each lung base similar to comparison. Given the provided history, bilateral mild COVID-19 pneumonia is the most likely etiology. Physical Exam: GENERAL: Patient with cough, congestion. VITAL SIGNS: Reviewed HEENT: Extraocular movements intact. Dry mucous membranes. NECK: Supple. No carotid bruits. No lymphadenopathy or thyromegaly. LUNGS: Better air movement bilateral. Currently on 4 L per nasal cannula HEART: Regular rate and rhythm, no appreciable gallops, rubs, murmurs or extra heart sounds ABDOMEN: Soft, nontender, and nondistended. Positive bowel sounds. No hepatosplenomegaly was noted. EXTREMITIES: Without any cyanosis, clubbing, rash, lesions or peripheral edema. NEUROLOGIC: The patient is oriented to person, place and time. Strength and sensation are grossly intact. Face is symmetric. SKIN: Normal color, turgor and temperature. No ulcerations or rashes noted. Impression: Dyspnea secondary to bilateral Covid pneumonia with hypoxia, partially vaccinated Fatty liver with noted elevated liver function Plan: Dyspnea secondary to bilateral Covid pneumonia with hypoxia, partially vaccinated: Slow improvement noted. Currently on 4 L per nasal cannula. We will try to ambulate more today. Encourage incentive spirometer. Patient not a candidate for remdesivir, Actemra, or baricitinib due to elevated liver function and fatty liver. Continue IV Solu-Medrol and vitamin supplementation. Continue to trend ferritin and CRP. DVT prophylaxisLovenox in place. Continue with medication for cough, congestion, fever, or pain. Will provide supplementation if required. Home oxygen arranged. We will try to ambulate today. Likely discharge in the next 24 hours. Fatty liver with noted elevated liver function: Patient with history of fatty liver. Will monitor and trend liver function test. Patient was to have outpatient liver ultrasound recently. LFT improved. Code Status: Full Code DVT prophylaxis: Lovenox Advanced Care Planning-30 minutes: Home at discharge. Anticipate likely oxygen at discharge. Time Spent Managing Pts Care (In Minutes): 55
[2020-12-09] MEDS: ENOXAPARIN 40 MG/0.4 ML SQ SCH (08:05)
[2020-12-09] MEDS: ZINC SULFATE 220 MG CAP PO SCH (08:05)
[2020-12-09] MEDS: FAMOTIDINE 20 MG TAB PO SCH ×2 (08:05→20:29)
[2020-12-09] MEDS: VITAMIN D 1000 UNIT TAB PO SCH (08:05)
[2020-12-09] MEDS: THIAMINE HCL 100 MG TABLET PO SCH ×2 (08:05→20:30)
[2020-12-09] MEDS: ASCORBIC ACID 500 MG TABLET PO SCH ×3 (08:05→20:30)
[2020-12-09] MEDS: ENSURE HIGH PROTEIN 237 ML CAN PO SCH ×3 (08:06→20:31)
--- NOTE | 2020-12-09 08:46 | RAD REPORT ---
EXAM DESCRIPTION: RAD - Chest Single View - 12/09/2020 7:47 am CLINICAL HISTORY: follow up COVID, pneumonia TECHNIQUE: AP portable chest image was obtained 12/09/2020 7:47 am . FINDINGS: Lung volumes are low. Patchy bilateral airspace opacities are present in each lung base. P attern is not substantially different from comparison. Heart and vasculature are normal. No measurabl e pleural effusion and no pneumothorax. No acute bony abnormality seen. No acute aortic findings susp ected. IMPRESSION: Bilateral airspace opacification in each lung base similar to comparison. Given the provided history, bilateral mild COVID-19 pneumonia is the most likely etiology.
[2020-12-09] MEDS: MELATONIN 5 MG TABLET PO PRN (21:54)
[2020-12-10] MEDS: METHYLPREDNISOLONE 125 MG INJ IV SCH ×2 (00:20→08:44)
[2020-12-10 03:46] LABS: Absolute Lymphocytes (CBC) 0.6 K/uL (0.7-4.9); Basophils % 0.2 % (0-1.3); Hematocrit 37.6 % (36.0-45.0); MPV 8.2 fL (7.6-11.3); RBC Red Blood Cell Count 4.33 M/uL (3.86-4.86)
[2020-12-10 04:20] LABS: ALT/SGPT 62 U/L (12-78); AST/SGOT 61 U/L (15-37); Albumin 3.3 g/dL (3.4-5.0); Alkaline Phosphatase 74 U/L (45-117); BUN Blood Urea Nitrogen 18 mg/dL (7-18); Bicarbonate 28 mmol/L (21-32); Bilirubin Total 0.4 mg/dL (0.2-1.0); Glucose Level 142 mg/dL (74-106); Potassium 4.2 mmol/L (3.5-5.1); Protein, Total 8.1 g/dL (6.4-8.2); Sodium Level 145 mmol/L (136-145)
[2020-12-10 04:21] LABS: Magnesium 2.8 mg/dL (1.8-2.4)
[2020-12-10 04:36] LABS: Ferritin 289.6 ng/mL (8-388)
[2020-12-10 05:12] VITALS: TEMP 96.9
[2020-12-10] MEDS: ENOXAPARIN 40 MG/0.4 ML SQ SCH (08:43)
[2020-12-10] MEDS: THIAMINE HCL 100 MG TABLET PO SCH (08:44)
[2020-12-10] MEDS: ASCORBIC ACID 500 MG TABLET PO SCH (08:44)
[2020-12-10] MEDS: ZINC SULFATE 220 MG CAP PO SCH (08:44)
[2020-12-10] MEDS: FAMOTIDINE 20 MG TAB PO SCH (08:44)
[2020-12-10] MEDS: VITAMIN D 1000 UNIT TAB PO SCH (08:44)
[2020-12-10] MEDS: BENZONATATE 100 MG CAP PO PRN (08:45)
[2020-12-10] MEDS: ENSURE HIGH PROTEIN 237 ML CAN PO SCH (08:45)
[2020-12-10 09:46] VITALS: BP 110/60
[2020-12-10 10:11] VITALS: O2SAT 93
--- NOTE | 2020-12-10 10:29 | P.DS ---
Admission Date: 12/07/20 Discharge Date: 12/10/20 Primary Care Provider: Dr. Juares Disposition: ROUTINE DISCHARGE Discharge Condition: GOOD Reason for Admission: Shortness of breath Consultations: none Procedures: Chest x-ray: FINDINGS: Lung volumes are very low accentuating heart, vasculature and lung markings. Interstitial and alveolar bibasilar opacification is suspicious for pneumonia but would need follow-up with more optimal inspiratory effort. Large body habitus artifact and shallow inspiration artifact can create a similar pattern. No failure or volume overload suspected. Heart and vasculature are normal. No measurable pleural effusion and no pneumothorax. No acute bony abnormality seen. No acute aortic findings suspected. IMPRESSION: Significantly limited portable imaging with lung volumes in bilateral lung parenchymal opacification. Lung base findings may simply be atelectasis. Bilateral lung base pneumonia cannot be excluded. Follow up CXR: FINDINGS: Lung volumes are low. Patchy bilateral airspace opacities are present in each lung base. Pattern is not substantially different from comparison. Heart and vasculature are normal. No measurable pleural effusion and no pneumothorax. No acute bony abnormality seen. No acute aortic findings suspected. IMPRESSION: Bilateral airspace opacification in each lung base similar to comparison. Given the provided history, bilateral mild COVID-19 pneumonia is the most likely etiology. Medical problem list: Dyspnea secondary to bilateral Covid pneumonia with hypoxia, partially vaccinated Fatty liver with noted elevated liver function Obesity, BMI 33.8 Brief History of Present Illness: 50-year-old female with history of fatty liver and obesity. Patient presented with increasing shortness of breath over the past week. Symptoms have been worsening. She also reports some fever, chills, cough and arthralgias. Some fatigue noted. with similar complaints and tested positive. Patient is partially vaccinated. She received her first dose of Pfizer several weeks ago. She came to the ER for further evaluation. In the ER patient was evaluated. Patient was febrile and tachypneic. Room air saturations around 92%. On labs white count 2.7, hemoglobin 13.7. Sodium 140, potassium three-point.. BUN of 6, creatinine 0.8. GFR 75. Glucose 110. CRP 87, ferritin 394. AST 130, ALT 96. D-dimer negative. Lactic acid negative. Troponin negative. Chest x-ray shows Covid pattern. Patient admitted for treatment. Hospital Course: Patient presented with dyspnea. Patient found to have Covid pneumonia bilateral with hypoxia. Patient is partially vaccinated with Pfizer vaccine. Patient required hospitalization. The patient was given IV steroids and supplementation. Patient not a candidate for remdesivir, Actemra, or baricitinib due to elevated liver function and fatty liver. The patient has done well. CRP and ferritin has improved. Liver function tests also improved. At discharge she still requires oxygen. Currently on 3 L per nasal cannula. Patient able to ambulate appropriately. At discharge the patient will continue with home oxygen to maintain sats above 93%. Patient currently on 3 L per nasal cannula. This can be weaned off with the help of her PCP or pulmonology. At discharge the patient will continue with prednisone 20 mg 1 pill twice daily for 7 days then 1 pill once daily for 7 days. The patient will be provided Robitussin AC 5 mL 3 times a day as needed for cough and albuterol 2 puffs 3 times a day as needed for shortness of breath. The patient will also continue with aspirin 81 mg daily. The patient will continue with vitamin supplementation including zinc 220 mg daily, thiamine 100 mg 1 pill twice daily, melatonin 5 mg at bedtime, Pepcid 20 mg 1 pill twice daily, vitamin C 500 mg 3 times a day, and vitamin D 2000 units daily. Patient will need to continue with incentive spirometer. Patient will continue with CDC guidelines on COVID-19 isolation. Recommend to continue proning, handwashing, facemask use, and social distancing. Recommend follow-up with PCP in 1 week to follow-up his hospitalization. Also recommend to establish care with pulmonology to follow-up this hospitalization and continue her care. Oxygen arranged prior to discharge. This can be weaned off with the help of her PCP. Once improved patient will need to follow-up and get her second dose of Covid vaccine. Patient with fatty liver. Liver function tests were elevated but improved with current treatment. Patient is to have outpatient liver ultrasound to further evaluate. Education provided. Recommend GI evaluation in the future to further address. Patient with obesity, BMI 33.8. Lifestyle modification education provided. Vital Signs/Physical Exam: Temp Pulse Resp BP Pulse Ox 96.9 F 80 20 110/60 90 L 12/10/20 08:00 12/10/20 08:00 12/10/20 08:00 12/10/20 08:00 12/10/20 08:00 General: Alert, In no apparent distress, Oriented x3, Cooperative HEENT: Atraumatic Neck: Supple Respiratory: Other (better air movement. on 3 L/min) Cardiovascular: Normal pulses, Regular rate/rhythm Gastrointestinal: Normal bowel sounds, No tenderness, No masses, No rebound, No guarding Musculoskeletal: No erythema, No tenderness, No warmth Integumentary: No tenderness/swelling Neurological: Normal speech, Normal strength at 5/5 x4 extr, Normal tone Laboratory Data at Discharge: WBC 6.90 K/uL (4.3-10.9) 12/10/20 03:20 Hgb 12.6 g/dL (12.0-15.0) 12/10/20 03:20 Hct 37.6 % (36.0-45.0) 12/10/20 03:20 Plt Count 248 K/uL (152-406) 12/10/20 03:20 PT 12.5 SECONDS (9.5-12.5) 12/07/20 10:57 INR 1.09 12/07/20 10:57 APTT 31.5 SECONDS (24.3-36.9) 12/07/20 10:57 Sodium 145 mmol/L (136-145) 12/10/20 03:20 Potassium 4.2 mmol/L (3.5-5.1) 12/10/20 03:20 BUN 18 mg/dL (7-18) 12/10/20 03:20 Creatinine 0.56 mg/dL (0.55-1.3) 12/10/20 03:20 Glucose 142 mg/dL (74-106) H 12/10/20 03:20 Magnesium 2.8 mg/dL (1.8-2.4) H 12/10/20 03:20 Total Bilirubin 0.4 mg/dL (0.2-1.0) 12/10/20 03:20 AST 61 U/L (15-37) H 12/10/20 03:20 ALT 62 U/L (12-78) 12/10/20 03:20 Alkaline Phosphatase 74 U/L (45-117) 12/10/20 03:20 Home Medications: Albuterol Inhaler [Ventolin Inhaler*] 2 puff IH TID PRN #1 hfa.aer.ad 12/10/20 Ascorbic Acid [Vitamin C*] 500 mg PO TID #90 tablet 12/10/20 Aspirin [Aspirin EC 81 MG] 81 mg PO DAILY #30 tablet. 12/10/20 Cholecalciferol (Vitamin D3) [Vitamin D 1000 Iu Tab*] 2,000 unit PO DAILY #60 tab 12/10/20 Famotidine [Pepcid*] 20 mg PO BID #60 tab 12/10/20 Guaifen W/Codeine Syrup [ROBITUSSIN A-C Syrup] 5 ml PO TID PRN #1 bottle 12/10/20 Melatonin 5 mg PO BEDTIME PRN PRN #30 tablet 12/10/20 Thiamine HCl [Vitamin B-1*] 100 mg PO BID #60 tablet 12/10/20 Zinc Sulfate [Zinc Sulfate*] 220 mg PO DAILY #30 cap 12/10/20 predniSONE [Prednisone*] 20 mg PO SEECOM #21 tab 12/10/20 New Medications: Aspirin [Aspirin EC 81 MG] 81 mg PO DAILY #30 tablet. Melatonin 5 mg PO BEDTIME PRN PRN #30 tablet PRN Reason: Insomnia Famotidine [Pepcid*] 20 mg PO BID #60 tab predniSONE [Prednisone*] 20 mg PO SEECOM #21 tab Guaifen W/Codeine Syrup [ROBITUSSIN A-C Syrup] 5 ml PO TID PRN #1 bottle PRN Reason: Cough Albuterol Inhaler [Ventolin Inhaler*] 2 puff IH TID PRN #1 hfa.aer.ad PRN Reason: Shortness Of Breath Thiamine HCl [Vitamin B-1*] 100 mg PO BID #60 tablet Ascorbic Acid [Vitamin C*] 500 mg PO TID #90 tablet Cholecalciferol (Vitamin D3) [Vitamin D 1000 Iu Tab*] 2,000 unit PO DAILY #60 tab Zinc Sulfate [Zinc Sulfate*] 220 mg PO DAILY #30 cap Physician Discharge Instructions: Patient presented with dyspnea. Patient found to have Covid pneumonia bilateral with hypoxia. Patient is partially vaccinated with Pfizer vaccine. Patient required hospitalization. The patient was given IV steroids and supplementation. Patient not a candidate for remdesivir, Actemra, or baricitinib due to elevated liver function and fatty liver. The patient has done well. CRP and ferritin has improved. Liver function tests also improved. At discharge she still requires oxygen. Currently on 3 L per nasal cannula. Patient able to ambulate appropriately. At discharge the patient will continue with home oxygen to maintain sats above 93%. Patient currently on 3 L per nasal cannula. This can be weaned off with the help of her PCP or pulmonology. At discharge the patient will continue with prednisone 20 mg 1 pill twice daily for 7 days then 1 pill once daily for 7 days. The patient will be provided Robitussin AC 5 mL 3 times a day as needed for cough and albuterol 2 puffs 3 times a day as needed for shortness of breath. The patient will also continue with aspirin 81 mg daily. The patient will continue with vitamin supplementation including zinc 220 mg daily, thiamine 100 mg 1 pill twice daily, melatonin 5 mg at bedtime, Pepcid 20 mg 1 pill twice daily, vitamin C 500 mg 3 times a day, and vitamin D 2000 units daily. Patient will need to continue with incentive spirometer. Patient will continue with CDC guidelines on COVID-19 isolation. Recommend to continue proning, handwashing, facemask use, and social distancing. Recommend follow-up with PCP in 1 week to follow-up his hospitalization. Also recommend to establish care with pulmonology to follow-up this hospitalization and continue her care. Oxygen arranged prior to discharge. This can be weaned off with the help of her PCP. Once improved patient will need to follow-up and get her second dose of Covid vaccine. Patient with fatty liver. Liver function tests were elevated but improved with current treatment. Patient is to have outpatient liver ultrasound to further evaluate. Education provided. Recommend GI evaluation in the future to further address. Patient with obesity, BMI 33.8. Lifestyle modification education provided. Diet: AHA Activity: Ad go Followup: NONE,NONE [Primary Care Provider] - Time spent managing pt's care (in minutes): 55
== END 2020-12-10 11:41 | disposition home or self-care (01) | DRG 177 ==
LOC: ER 10:28 → ERHOLD 13:04 → 4TH 18:13
PROVIDERS: ADMIT Family Medicine; ATTEND Family Medicine
DX: U07.1 COVID-19 (principal); J12.82 Pneumonia due to coronavirus disease 2019; R09.02 Hypoxemia; K76.0 Fatty (change of) liver, not elsewhere classified; R79.89 Other specified abnormal findings of blood chemistry; E66.9 Obesity, unspecified; Z68.33 Body mass index [BMI] 33.0-33.9, adult
CPT/HCPCS: 36415; 71045; 80048; 80053; 80076; 82728; 83605; 83735; 84145; 84484; 85025; 85379; 85610; 85730; 86140; 87040; 87804; 93005; 94010; 94760; 96374; 99284; J1650; J2405; J2920; J2930; U0003